=== PATIENT | female | born 1960 | race Two or more races ===

== ENCOUNTER 2024-05-27 14:49 | Emergency (ER) | payer MEDICAID, OTHER ==
[~2024-05-27] VITALS: Ht 149.9 cm; Wt 94.3 kg
[2024-05-27] MEDS: HYDROcodone-ACET 5/325MG TAB PO ONE (16:27)
[2024-05-27 16:44] VITALS: BP 197/97; PULSE 96; RESP 18; TEMP 98.2; O2SAT 95
--- NOTE | 2024-05-27 17:09 | DVH ---
CLINICAL INDICATION: fracture TECHNIQUE: XY L HAND 3V XRAY Comparison: None FINDINGS/IMPRESSION: : There is no evidence of acute fracture or dislocation. Soft-tissue swelling of the dorsum of the hand.
[2024-05-27] MEDS ORDERED: IBUP-1454 PO (17:36)
--- NOTE | 2024-05-27 17:36 | ED.PDOC ---
Musculoskeletal HPI Comments L hand contusion after hitting hand on TV. Concerned about swelling to dorsal aspect of the L hand. Pain 2/10. No other complaint. Full ROM. Chief Complaint: Upper Extremity Time Seen by MD: 16:00 Primary Care Provider: PAUL Reviewed Notes: Nurses Notes, Medications, Allergies Allergies: Coded Allergies: NO KNOWN ALLERGIES (Unverified , 05/27/24) Home Meds Active Scripts Ibuprofen (Ibuprofen) 600 Mg Tab, 1 TAB PO TID for 10 Days, #30 TAB 0 Refills Prov:MARGARITA POZO Liseth ENGINEER [employer] 05/27/24 Information Source: Patient Mode of Arrival: Ambulatory Family History Family History: Reviewed,noncontributory to illness Social History Smoker: Non-Smoker Alcohol: Denies ETOH Use Drugs: Denies Drug Use All Other Systems: Reviewed and Negative (per hpi) Physical Exam General Appearance: No Apparent Distress, Normal HEENT: Normal ENT Inspection, Pharynx Normal, TMs Normal Neck: Full Range of Motion, Non-Tender, Normal, Normal Inspection Respiratory: Chest Non-Tender, Lungs Clear, No Accessory Muscle Use, No Respiratory Distress, Normal Breath Sounds Cardiovascular: No Edema, No JVD, No Murmur, No Gallop, Normal Peripheral Pulses, Regular Rate/Rhythm Breast Exam: Deferred Gastrointestinal: No Organomegaly, Non Tender, No Pulsatile Mass, Normal Bowel Sounds, Soft Genitalia: Deferred Pelvic: Deferred Rectal: Deferred Extremities: No calf tenderness, Normal capillary refill, Normal inspection, Normal range of motion, Non-tender, No pedal edema Musculoskeletal : Apperance: Normal Neurologic: Alert, optometrist II-XII nml as Tested, No Motor Deficits, Normal Affect, Normal Mood, No Sensory Deficits Cerebellar Function: Normal Reflexes: Normal Skin: Dry, Normal Color, Warm Lymphatic: No Adenopathy Was a procedure done? Was a procedure done?: No Images 1 - hematoma. echymosis. Full ROM. Differential Diagnosis EXT Differential Diagnosis: Other X-Ray, Labs, Meds, VS Vital Signs Date Time Temp Pulse Resp B/P (MAP) Pulse Ox O2 Delivery O2 Flow Rate FiO2 05/27/24 16:44 98.2 96 18 197/97 (130) 95 98.2 05/27/24 16:44 96 18 95 Room Air 05/27/24 14:55 98.2 96 18 197/97 (130) 95 PATIENT: JERSON JOHNSON: [id number]: [id number] : 1960 LOC: ER ROOM / BED: / AGE / SEX: 63 / F ADM STATUS: REG ER SERVICE 1610 ORDERING PHYSICIAN: MARGARITA POZO NP PROCEDURE(s): LHAN - L HAND 3V XRAY REASON: fracture? ORDER NUMBER(s): [id number], ACCESSION NUMBER(s): [id number] CLINICAL INDICATION: fracture TECHNIQUE: XY L HAND 3V XRAY Comparison: None FINDINGS/IMPRESSION: : There is no evidence of acute fracture or dislocation. Soft-tissue swelling of the dorsum of the hand. ATED BY: GUERRERO ALFONSO MD DICTATED DATE/TIME: 05/27/241704 SIGNED BY: GUERRERO ALFONSO MD SIGNED DATE/TIME: 05/27/241704 CC: X-Ray, Labs, Meds, VS Comment Inform patient of their elevated blood pressure. Did not take medication this morning. Today discussed importance of regular exercise Sodium restriction DASH diet Limit or illuminate alcohol intake Patient verbalized understanding Follow-up with PCP External notes reviewed. Test results and diagnostic imaging interpreted. All diagnostic findings, discharge care, education and instructions provided Follow-up with PCP in 2 to 3 days Patient verbalized understanding and agreed to treatment plan Vital signs stable, afebrile, no acute distress noted Patient ambulatory with strong steady gait Advised to return precautions for any new or worsening symptoms, return to ER immediately for re-evaluation Patient is aware that the purpose of this visit was for an acute medical emergency requiring emergent stabilization. Chronic conditions, including malignancies have not been ruled out. Patient is instructed to follow up with PCP as directed and discharge instructions for continued care and workup. If unable to arrange follow-up, patient is to return to the emergency department for reassessment. Patient (parent or legal guardian if applicable) was given verbal and written discharge instructions and acknowledges understanding. Time of 1ST Reevaluation: 17:00 Reevaluation 1ST: Improved Patient Education/Counseling: Diagnosis, Treatment Family Education/Counseling: Diagnosis, Treatment Departure 1 Departure Time of Disposition: 17:34 Impression: Primary Impression: Hand contusion Qualified Codes: S60.222A - Contusion of left hand, initial encounter Additional Impression: Elevated blood pressure reading Disposition: HOME / SELF CARE / HOMELESS Condition: Stable e-Prescriptions Ibuprofen (Ibuprofen) 600 Mg Tab 1 TAB PO TID for 10 Days, #30 TAB 0 Refills Prov: MARGARITA POZO NP 05/27/24 Critical Care Note Critical Care Time?: No Stability Stability form required: No Heart Score Heart Score: Heart Score Response (Comments) Value History N/A 0 EKG N/A 0 Age N/A 0 Risk Factors N/A 0 Troponin N/A 0 Total 0 MARGARITA POZO NP May 27, 2024 17:36
== END 2024-05-27 17:37 | disposition home or self-care (01) ==
LOC: ER 14:49
DX: S60.222A Contusion of left hand, initial encounter (principal); R03.0 Elevated blood-pressure reading, without diagnosis of hypertension; Z79.1 Long term (current) use of non-steroidal anti-inflammatories (NSAID); W22.8XXA Striking against or struck by other objects, initial encounter; Y93.89 Activity, other specified; Y92.89 Other specified places as the place of occurrence of the external cause; Y99.8 Other external cause status
CPT/HCPCS: 73130

== ENCOUNTER 2024-12-28 20:27 | Emergency (ER) | payer OTHER, MEDICAID ==
[~2024-12-28 20:27] MED LIST: IBUP-1454 PO
--- NOTE | 2024-12-28 20:50 | ED.PDOC ---
Musculoskeletal HPI Comments 64y F who presents to the ED for chief complaint of RLE pain. Pt states she has been having RLE pain and swelling since earlier this AM. Pt states she woke up this AM with swelling and pain to the RLE, non- radiating, with no associated exacerbating or relieving factors. Pt states she was unable to ambulate all day and came to the ED for further evaluation. Pt in the ED, otherwise denies any other symptoms. Time Seen by MD: 20:49 Primary Care Provider: PAUL Chapin Notes: Medications, Allergies Allergies: Coded Allergies: NO KNOWN ALLERGIES (Unverified , 05/27/24) Home Meds Active Scripts Ibuprofen (Ibuprofen) 600 Mg Tab, 1 TAB PO TID for 10 Days, #30 TAB 0 Refills Prov:MARGARITA POZO ENVELOPE FOLDER 05/27/24 Information Source: Patient, Friend Mode of Arrival: Wheelchair Past Medical History PAST MEDICAL HISTORY: DM, HTN Family History Family History: Reviewed,noncontributory to illness Social History Smoker: Non-Smoker Alcohol: Denies ETOH Use Drugs: Denies Drug Use All Other Systems: Reviewed and Negative (see HPI) Physical Exam General Appearance: No Apparent Distress, Normal HEENT: Normal ENT Inspection, Pharynx Normal, TMs Normal Neck: Full Range of Motion, Non-Tender, Normal, Normal Inspection Respiratory: Chest Non-Tender, Lungs Clear, No Accessory Muscle Use, No Respiratory Distress, Normal Breath Sounds Cardiovascular: No Edema, No JVD, No Murmur, No Gallop, Normal Peripheral Pulses, Regular Rate/Rhythm Breast Exam: Deferred Gastrointestinal: No Organomegaly, Non Tender, No Pulsatile Mass, Normal Bowel Sounds, Soft Genitalia: Deferred Pelvic: Deferred Rectal: Deferred Extremities: Other (RLE pain and swelling to the R lateral mallelolus) Musculoskeletal : Apperance: Normal Neurologic: Alert, exhauster engineer II-XII nml as Tested, No Motor Deficits, Normal Affect, Normal Mood, No Sensory Deficits Cerebellar Function: Normal Reflexes: Normal Skin: Dry, Normal Color, Warm Lymphatic: No Adenopathy Was a procedure done? Was a procedure done?: Yes Sedation Sedation?: No Informed consent obtained: Yes Other Procedure Procedure splinting ( ankle stirrup) of right ankle with proper position, good NV functions Differential Diagnosis EXT Differential Diagnosis: Cellulitis, Deep Vein Thrombosis, Fracture, Sprain, Dislocation, Gout, DJD, Contusion, Strain, Neurovascular injury, Arthritis, Bursitis Time of 1ST Reevaluation: 21:35 Reevaluation 1ST: Improved Patient Education/Counseling: Diagnosis, Treatment, Prognosis, Need For Follow Up Family Education/Counseling: Diagnosis, Treatment, Prognosis, Need For Follow Up Comments pt denies injuries. no calf pain or swelling. on exam, the right lateral malleolus is mildly swollen and tender, but without redness or increased in warmth or signs of injuries. xrays is negative, but questions Lisfranc's injury. he has no pain over the the metatarsal area. her pain and swelling is the right lateral malleolus only. i will splint her affected ankle and she is stable to follow up with her doctor in 2-3 days Departure 1 Departure Time of Disposition: 21:40 Impression: Primary Impression: Ankle pain, right Qualified Codes: M25.571 - Pain in right ankle and joints of right foot Disposition: 01 HOME / SELF CARE / HOMELESS Condition: Good e-Prescriptions Hydrocodone-Acetaminophen (Hydrocodone Bitartrate/AC 5-325 mg) 1 Tab Tab 1 TAB PO Q12HP PRN for 3 Days, #6 TAB Prov: TERE BEDOYA MD 12/28/24 Discharged With: Self, Relative Critical Care Note Critical Care Time?: No Stability Stability form required: No Heart Score Heart Score: Heart Score Response (Comments) Value History N/A 0 EKG N/A 0 Age N/A 0 Risk Factors N/A 0 Troponin N/A 0 Total 0 I personally scribed for TERE BEDOYA MD ([email or web address]) on 12/28/24 at 20:50. Electronically submitted by Jossue Tinajero ([email or web address]). TERE BEDOYA MD Dec 28, 2024 20:50
--- NOTE | 2024-12-28 21:14 | DVH ---
CLINICAL INDICATION: pain TECHNIQUE: 3 radiographic views of the right foot were obtained. Comparison: None FINDINGS/IMPRESSION: There is no evidence of acute fracture or dislocation. Small posterior and plantar calcaneal bony spu rs. Os naviculare is noted. Slight widening of the interval between the 1st and 2nd metatarsal bases. Correlate for Possible Lis franc's injury of unknown chronicity. The alignment is anatomical. There is no radiopaque foreign body. Mild dorsal foot soft tissue edema.
--- NOTE | 2024-12-28 21:14 | DVH ---
CLINICAL INDICATION: pain TECHNIQUE: 3 radiographic views of the right ankle were obtained. Comparison: None FINDINGS/IMPRESSION: There is no evidence of acute fracture or dislocation. The visualized joint space is well maintained. Posterior and plantar calcaneal bony spurs. Bony spur from the anterior distal tibia. The alignment is anatomical. There is no radiopaque foreign body. [id number] ankle soft tissue edema soft tissue edema over the dorsal visualized foot.
[2024-12-28] MEDS ORDERED: HYDR-4902 PO (21:41)
[2024-12-28] MEDS: HYDROcodone-ACET 5/325MG TAB PO ONE (22:05)
[2024-12-28 22:18] VITALS: BP 143/75; PULSE 88; RESP 20; TEMP 98.2; O2SAT 96
== END 2024-12-28 22:36 | disposition home or self-care (01) ==
LOC: ER 20:27
DX: M25.571 Pain in right ankle and joints of right foot (principal); E11.9 Type 2 diabetes mellitus without complications; I10 Essential (primary) hypertension; Z79.1 Long term (current) use of non-steroidal anti-inflammatories (NSAID)
CPT/HCPCS: 29515; 73610; 73630; 99284; J7030

== ENCOUNTER 2025-03-30 10:14 | Emergency (ER) | payer OTHER, MEDICAID ==
[~2025-03-30] VITALS: Ht 147.3 cm; Wt 99.8 kg
[~2025-03-30 10:14] MED LIST changes: +HYDR-4902 PO
[2025-03-30 10:17] VITALS: TEMP 98.3
--- NOTE | 2025-03-30 10:23 | ECG ---
[facility] Test Date: 2025-03-30 Test Time: 10:17:38 Pat Name: JERSON JOHNSON Department: Room: Gender: F Landscape Architect: GP : 1960 Requested By: ORTEGA KILPATRICK Order Number: [id number] Reading MD: Kashmir Meneses Measurements Intervals [place] Rate: 80 P: 48 GA: 313 QRS: 18 QRSD: 93 T: 19 QT: 376 QTc: 434 Interpretive Statements Sinus rhythm Prolonged GA interval Probable left atrial enlargement Probable anterior infarct, old Electronically Signed On 03-30-2025 15:19:19 PDT by Kashmir Meneses Please click the below link to view image of tracing.
--- NOTE | 2025-03-30 11:14 | ED.PDOC ---
GI ASSESSMENT HPI Comments 64 year old female presents to the ED with a chief complaint of epigastric pain onset today about 30 minutes prior to ED arrival. Patient began experiencing sharp epigastric pain, as well as sweats. Patient states she has also been experiencing constipation, last bowel movement was yesterday, states it was not a normal bowel movement. Denies nausea, vomiting, diarrhea, headache, dizziness, shortness of breath, fever, chills, dysuria, hematuria, hematemesis. No other symptoms or modifying factors present at this time. Chief Complaint: Abdominal Pain Time Seen by MD: 11:00 Primary Care Provider: PAUL Reviewed Notes: Medications, Allergies Allergies: Coded Allergies: NO KNOWN ALLERGIES (Unverified , 05/27/24) Home Meds Active Scripts Hydrocodone-Acetaminophen (Hydrocodone Bitartrate/AC 5-325 mg) 1 Tab Tab, 1 TAB PO Q12HP PRN for 3 Days, #6 TAB Prov:TERE BEDOYA MD 12/28/24 Ibuprofen (Ibuprofen) 600 Mg Tab, 1 TAB PO TID for 10 Days, #30 TAB 0 Refills Prov:MARGARITA POZO NP 05/27/24 Information Source: Patient Mode of Arrival: Ambulatory Timing: Minutes Duration: Since onset Prehospital treatment: None Quality: Sharp Vomitus: None Severity: Moderate Recent: None Recent Hx of: None Pain Location: Epigastric Modifying Factors: Nothing Associated sign and symptoms: Abdominal Pain Past Medical History PAST MEDICAL HISTORY: DM, HTN Surgical History: Denies all surgeries FARE ENFORCEMENT OFFICER History: No Pertinent FARE ENFORCEMENT OFFICER History Family History Family History: Reviewed,noncontributory to illness Social History Smoker: Non-Smoker Alcohol: Denies ETOH Use Drugs: Denies Drug Use Lives In: Home Constitutional: reports: sweats; denies: chills, diaphoresis, fatigue, fever, malaise, weakness, others EENTM: denies: blurred vision, double vision, ear bleeding, ear discharge, ear drainage, ear pain, ear ringing, eye pain, eye redness, hearing loss, mouth pain, mouth swelling, nasal discharge, nose bleeding, nose congestion, nose pain, photophobia, tearing, throat pain, throat swelling, voice changes, others Respiratory: denies: cough, hemoptysis, orthopnea, SOB at rest, shortness of breath, SOB with excertion, stridor, wheezing, others Cardiovascular: denies: chest pain, dizzy spells, diaphoresis, Dyspnea on exertion, edema, irregular heart beat, left arm pain, lightheadedness, palpitations, PND, syncope, others Gastrointestinal: reports: abdominal pain; denies: abdomen distended, blood streaked bowels, constipated, diarrhea, dysphagia, difficulty swallowing, hematemesis, melena, nausea, poor appetite, poor fluid intake, rectal bleeding, rectal pain, vomiting, others Genitourinary: denies: abnormal vagina bleeding, burning, dyspareunia, dysuria, flank pain, frequency, hematuria, incontinence, pain, , vagina discharge, urgency, others Neurological: denies: dizziness, fainting, headache, left sided numbness, left sided weakness, numbness, paresthesia, pre-existing deficit, right sided numbness, right sided weakness, seizure, speech problems, tingling, tremors, weakness, others Musculoskeletal: denies: back pain, gout, joint pain, joint swelling, muscle pain, muscle stiffness, neck pain, others Integumetry: denies: bruises, change in color, change in hair/nails, dryness, laceration, lesions, lumps, rash, wounds, others Allergic/Immunocompromised: denies: Difficulty Healing, Frequent Infections, Hives, Itching, others Hematologic/Lymphatic: denies: anemia, blood clots, easy bleeding, easy bruising, swollen glands, others Endocrine: denies: excessive hunger, excessive sweating, excessive thirst, excessive urination, flushing, intolerance to cold, intolerance to heat, une xplained weight gain, unexplained weight loss, others Psychiatric: denies: anxiety, bipolar disorder, depression, hopeless, panic disorder, schizophrenia, sleepless, suicidal, others All Other Systems: Reviewed and Negative Physical Exam General Appearance: Moderate Distress, Normal HEENT: Normal ENT Inspection, Pharynx Normal, TMs Normal Neck: Full Range of Motion, Non-Tender, Normal, Normal Inspection Respiratory: Chest Non-Tender, Lungs Clear, No Accessory Muscle Use, No Respiratory Distress, Normal Breath Sounds Cardiovascular: No Edema, No JVD, No Murmur, No Gallop, Normal Peripheral Pulses, Regular Rate/Rhythm Breast Exam: Deferred Gastrointestinal: Epigastric, No Organomegaly, No Pulsatile Mass, Normal Bowel Sounds, Soft Genitalia: Deferred Pelvic: Deferred Rectal: Deferred Extremities: No calf tenderness, Normal capillary refill, Normal inspection, Normal range of motion, Non-tender, No pedal edema Musculoskeletal : Apperance: Normal Neurologic: Alert, program arranger II-XII nml as Tested, No Motor Deficits, Normal Affect, Normal Mood, No Sensory Deficits Cerebellar Function: Normal Reflexes: Normal Skin: Dry, Normal Color, Warm Peripheral Pulses: 3+ Radial (R), 3+ Radial (L) Lymphatic: No Adenopathy EKG EKG : Pulse Rate (adult): 80 Cardiac Rhythm: NSR Was a procedure done? Was a procedure done?: No GI differential Dx Differential Diagnosis: Constipation, Diverticular disease, Esophagitis, Gastritis/PUD, Gastroenteritis X-Ray, Labs, Meds, VS Vital Signs Date Time Temp Pulse Resp B/P (MAP) Pulse Ox O2 Delivery O2 Flow Rate FiO2 03/30/25 11:14 80 03/30/25 10:17 98.3 79 22 161/83 94 98.3 03/30/25 10:17 80 Lab Test 03/30/25 12:17 03/30/25 11:10 Range/Units Urine Color Light-yellow Yellow Urine Clarity Clear Clear Urine pH 5.0 5.0-9.0 Urine Specific [place] 1.010 1.001-1.035 Urine Protein Negative Negative Urine Ketones Negative Negative Urine Blood Negative Negative /uL Urine Nitrite Negative Negative Urine Bilirubin Negative Negative Urine Urobilinogen Normal Negative mg/dL Urine Leukocyte Esterase Negative Negative /uL Urine RBC 1 0 - 4 /hpf Urine Microscopic WBC 1 0-5 /HPF Urine Squamous Epithelial Cells Few <5 /hpf Urine Bacteria Few H None Seen /hpf Urine Glucose Normal Normal mg/dL White Blood Count 6.2 4.4-10.8 10^3/uL Red Blood Count 5.34 H 4.0-5.20 10^6/uL Hemoglobin 15.2 12.2-16.2 g/dL Hematocrit 44.8 36.0-46.0 % Mean Corpuscular Volume 83.9 80.0-100.0 fL Mean Corpuscular Hemoglobin 28.4 28.0-32.0 pg Mean Corpuscular Hemoglobin Concent 33.8 32.0-36.0 g/dL Red Cell Distribution Width 14.8 H 11.8-14.3 % Platelet Count 666 H 140-450 10^3/uL Mean Platelet Volume 7.5 6.9-10.8 fL Neutrophils (%) (Auto) 68.1 37.0-80.0 % Lymphocytes (%) (Auto) 21.8 10.0-50.0 % Monocytes (%) (Auto) 6.6 0.0-12.0 % Eosinophils (%) (Auto) 2.2 0.0-7.0 % Basophils (%) (Auto) 1.3 0.0-2.0 % Neutrophils # (Auto) 4.2 1.6-8.6 10 ^3/uL Lymphocytes # (Auto) 1.4 0.4-5.4 10 ^3/uL Monocytes # (Auto) 0.4 0-1.3 10 ^3/uL Eosinophils # (Auto) 0.1 0-0.8 10 ^3/uL Basophils # (Auto) 0.1 0-0.2 10 ^3/uL Nucleated Red Blood Cells 0.1 % Sodium Level 141 136-145 mmol/L Potassium Level 4.2 3.5-5.1 mmol/L Chloride Level 104 98-107 mmol/L Carbon Dioxide Level 27 20-31 mmol/L Anion Gap 10 5-15 Blood Urea Nitrogen 15 9-23 mg/dL Creatinine 1.26 H 0.550-1.02 mg/dL Glomerular Filtration Rate Calc 47 >90 mL/min BUN/Creatinine Ratio 11.9 10.0-20.0 Serum Glucose 101 74-106 mg/dL Calcium Level 9.4 8.7-10.4 mg/dL Total Bilirubin 0.4 0.2-1.0 mg/dL Aspartate Amino Transferase (AST) 48 H 13-40 U/L Alanine Aminotransferase (ALT) 32 7-40 U/L Alkaline Phosphatase 107 46-116 U/L Troponin I High Sensitivity 3 L </=34 ng/L Total Protein 7.5 5.7-8.2 g/dL Albumin 4.8 3.2-4.8 g/dL [address] [address] Ph: [phone] DIAGNOSTIC IMAGING Diagnostic Imaging Report : [id number] Signed PATIENT: JERSON JOHNSON SACCT: [id number] UNIT: [id number] : 1960 LOC: ER ROOM / BED: / AGE / SEX: 64 / F ADM STATUS: REG ER SERVICE 1100 ORDERING PHYSICIAN: ORTEGA KILPATRICK MD PROCEDURE(s): ABPL - CT AB PEL WO CON-NO ORAL OR IV REASON: stone ORDER NUMBER(s): [id number], ACCESSION NUMBER(s): [id number] EXAM: CT CT AB PEL WO CON-NO ORAL OR IV HISTORY: stone COMPARISON: None TECHNIQUE: Helical CT images of the abdomen and pelvis were performed without IV contrast. Sagittal and coronal reformatted images were obtained. This CT exam was performed using one or more of the following dose reduction techniques: Automated exposure control, adjustment of the mA and/or kv according to patient size, or the use of iterative reconstruction techniques. Radiation Dose: Abdomen/Pelvis: CTDIvol 23.68 mGy, DLP 1271.46 mGy*cm. FINDINGS: CT abdomen: There is a calcified granuloma in the right lower lobe. The heart is enlarged. The bilateral pericardial fat pads are prominent. There are calcified granulomas in the liver and spleen. The noncontrast gallbladder, pancreas, kidneys, and adrenal glands are unremarkable. No abdominal aortic aneurysm. There is a left upper quadrant splenule. CT pelvis: No abnormal bowel dilatation, free air, or free fluid. There is fecal retention in the colon. There are a few descending and sigmoid colon diverticula without evidence of acute diverticulitis. The appendix and urinary bladder are unremarkable. Probable section scar. There are chronic appearing superior endplate compression fractures of T8 and T11. There is moderate to severe lumbar degenerative disc disease, greatest at L5-S1. There is significant neural foraminal stenosis on the right at L4-L5 and on the left at L5-S1. IMPRESSION: 1. Cardiomegaly. 2. Old granulomatous disease of the chest, liver, and spleen. 3. Fecal retention in the colon suggestive of constipation. 4. Mild colonic diverticulosis without evidence of acute diverticulitis. 5. Moderate to severe lumbar degenerative disc disease. Consider follow-up noncontrast MRI of the lumbar spine on an outpatient basis for better characterization, especially if the patient complains of lower extremity radicular symptoms. 6. Chronic appearing superior endplate compression fractures of T8 and T11. 7. No evidence of bowel obstruction, urinary tract obstruction, acute append icitis, or other acute process in the abdomen or pelvis. ATED BY: ALINA RAGSDALE MD DICTATED DATE/TIME: 03/30/251323 SIGNED BY: ALINA RAGSDALE MD SIGNED DATE/TIME: 03/30/251323 CC: Patient alert. Complaining of abdominal pain. Vitals stable. Answering questions. Abdomen is soft tender in the epigastric region. CT scan of the abdomen does not show any acute process other than diverticulosis. Chronic condition. Explained to the patient. Continue monitoring. Time of 1ST Reevaluation: 11:30 Reevaluation 1ST: Unchanged Patient Education/Counseling: Diagnosis, Treatment, Prognosis Family Education/Counseling: No Family Present SEPSIS Sepsis Screen Date sepsis recognized/suspect: Mar 30, 2025 Time Sepsis recognized/suspect: 915 Recent Procedure: No On Antibiotic Therapy: No Respiratory Rate >20: No Heart Rate >90: No Temp<36 C (96.8 F) or >38.3 C: No SBP <90 or MAP <65 mmHG: No New Acute Mental Status Change: No Is the patient on CPAP, BIPAP,: No Physician Orders Ct Ab Pel Wo Con-No Oral Or Iv (03/30/25 11:00) Vital Signs Date Time Temp Pulse Resp B/P (MAP) Pulse Ox O2 Delivery O2 Flow Rate FiO2 03/30/25 11:14 80 03/30/25 10:17 98.3 79 22 161/83 94 98.3 03/30/25 10:17 80 Laboratory Tests Test 03/30/25 11:10 White Blood Count 6.2 10^3/uL (4.4-10.8) Departure 1 Departure Time of Disposition: 14:12 Impression: Primary Impression: Acute abdominal pain Additional Impressions: Constipation Qualified Codes: K59.01 - Slow transit constipation Degenerative disc disease Qualified Codes: M51.369 - Other intervertebral disc degeneration, lumbar region without mention of lumbar back pain or lower extremity pain Disposition: ADMITTED INPATIENT Admit to: Med Surg Condition: Guarded Critical Care Note Critical Care Time?: Yes (90 min-critical care time only) Stability Stability form required: No Heart Score Heart Score: Heart Score Response (Comments) Value History N/A 0 EKG N/A 0 Age N/A 0 Risk Factors N/A 0 Troponin N/A 0 Total 0 I personally scribed for ORTEGA KILPATRICK MD ([email or web address]) on 03/30/25 at 11:14. Electronically submitted by Ethel Woodson ([email or web address]). I personally scribed for ORTEGA KILPATRICK MD ([email or web address]) on 03/30/25 at 13:59. Electronically submitted by Ethel Woodson ([email or web address]). ORTEGA KILPATRICK MD Mar 30, 2025 11:14
[2025-03-30 11:29] LABS: Hematocrit 44.8 % (36.0-46.0); Hemoglobin 15.2 g/dL (12.2-16.2); Mean Corpuscular Hemoglobin 28.4 pg (28.0-32.0); Mean Corpuscular Volume 83.9 fL (80.0-100.0); Nucleated Red Blood Cells % 0.1 %
[2025-03-30 11:41] LABS: Alanine Aminotransferase 32 U/L (7-40); Alkaline Phosphatase 107 U/L (46-116); Anion Gap 10 (5-15); BUN/Creatinine Ratio 11.9 (10.0-20.0); Blood Urea Nitrogen 15 mg/dL (9-23); Calcium 9.4 mg/dL (8.7-10.4); Carbon Dioxide 27 mmol/L (20-31); Chloride 104 mmol/L (98-107); Glucose 101 mg/dL (74-106); Potassium 4.2 mmol/L (3.5-5.1); Sodium 141 mmol/L (136-145); Total Protein 7.5 g/dL (5.7-8.2)
[2025-03-30 11:42] LABS: Bilirubin, Total 0.4 mg/dL (0.2-1.0)
[2025-03-30 11:53] LABS: Albumin 4.8 g/dL (3.2-4.8)
[2025-03-30 12:31] LABS: Urine Protein, UAD Negative (Negative)
--- NOTE | 2025-03-30 13:27 | DVH ---
EXAM: CT CT AB PEL WO CON-NO ORAL OR IV HISTORY: stone COMPARISON: None TECHNIQUE: Helical CT images of the abdomen and pelvis were performed without IV contrast. Sagittal a nd coronal reformatted images were obtained. This CT exam was performed using one or more of the foll owing dose reduction techniques: Automated exposure control, adjustment of the mA and/or kv according to patient size, or the use of iterative reconstruction techniques. Radiation Dose: Abdomen/Pelvis: CTDIvol 23.68 mGy, DLP 1271.46 mGy*cm. FINDINGS: CT abdomen: There is a calcified granuloma in the right lower lobe. The heart is enlarged. The bilat eral pericardial fat pads are prominent. There are calcified granulomas in the liver and spleen. The noncontrast gallbladder, pancreas, kidneys, and adrenal glands are unremarkable. No abdominal aortic aneurysm. There is a left upper quadrant splenule. CT pelvis: No abnormal bowel dilatation, free air, or free fluid. There is fecal retention in the col on. There are a few descending and sigmoid colon diverticula without evidence of acute diverticulitis . The appendix and urinary bladder are unremarkable. Probable section scar. There are chroni c appearing superior endplate compression fractures of T8 and T11. There is moderate to severe lumbar degenerative disc disease, greatest at L5-S1. There is significant neural foraminal stenosis on the right at L4-L5 and on the left at L5-S1. IMPRESSION: 1. Cardiomegaly. 2. Old granulomatous disease of the chest, liver, and spleen. 3. Fecal retention in the colon suggestive of constipation. 4. Mild colonic diverticulosis without evidence of acute diverticulitis. 5. Moderate to severe lumbar degenerative disc disease. Consider follow-up noncontrast MRI of the maría mbar spine on an outpatient basis for better characterization, especially if the patient complains of lower extremity radicular symptoms. 6. Chronic appearing superior endplate compression fractures of T8 and T11. 7. No evidence of bowel obstruction, urinary tract obstruction, acute appendicitis, or other acute pr ocess in the abdomen or pelvis.
--- NOTE | 2025-03-30 16:41 | DVHINCON2 ---
Date Seen: Mar 30, 2025 Referring Physician ER physician Dr. Moore. Reason for Consultation Abdominal pain with constipation. History of Present Illness 64-year-old female with a known history of diabetes mellitus type 2, hypertension initially present with the hospital with a epigastric pain and abdominal pain. Patient also complaining of constipation. CT abdomen and pelvis was done which shows no evidence of any diverticulitis but fecal burden in the colon. Patient is currently denies any chest pain shortness of breath fevers chills nausea vomiting diarrhea hematemesis hematochezia melena dysuria hematuria. Patient can be discharged with close follow up as an outpatient with the PCP . Past Medical History Diabetes mellitus type 2 Hypertension Past Surgical History None significant. Allergies: Coded Allergies: NO KNOWN ALLERGIES (Unverified , 05/27/24) Home Meds Active Scripts Hydrocodone-Acetaminophen (Hydrocodone Bitartrate/AC 5-325 mg) 1 Tab Tab, 1 TAB PO Q12HP PRN for 3 Days, #6 TAB Prov:TERE BEDOYA MD 12/28/24 Ibuprofen (Ibuprofen) 600 Mg Tab, 1 TAB PO TID for 10 Days, #30 TAB 0 Refills Prov:MARGARITA POZO NP 05/27/24 Vital Signs Vital Signs Date Time Temp Pulse Resp B/P (MAP) Pulse Ox O2 Delivery O2 Flow Rate FiO2 03/30/25 11:14 80 03/30/25 10:17 98.3 22 161/83 94 98.3 Labs/Diagnostic Data Labs Test 03/30/25 12:17 03/30/25 11:10 Range/Units Urine Color Light-yellow Yellow Urine Clarity Clear Clear Urine pH 5.0 5.0-9.0 Urine Specific [place] 1.010 1.001-1.035 Urine Protein Negative Negative Urine Ketones Negative Negative Urine Blood Negative Negative /uL Urine Nitrite Negative Negative Urine Bilirubin Negative Negative Urine Urobilinogen Normal Negative mg/dL Urine Leukocyte Esterase Negative Negative /uL Urine RBC 1 0 - 4 /hpf Urine Microscopic WBC 1 0-5 /HPF Urine Squamous Epithelial Cells Few <5 /hpf Urine Bacteria Few H None Seen /hpf Urine Glucose Normal Normal mg/dL White Blood Count 6.2 4.4-10.8 10^3/uL Red Blood Count 5.34 H 4.0-5.20 10^6/uL Hemoglobin 15.2 12.2-16.2 g/dL Hematocrit 44.8 36.0-46.0 % Mean Corpuscular Volume 83.9 80.0-100.0 fL Mean Corpuscular Hemoglobin 28.4 28.0-32.0 pg Mean Corpuscular Hemoglobin Concent 33.8 32.0-36.0 g/dL Red Cell Distribution Width 14.8 H 11.8-14.3 % Platelet Count 666 H 140-450 10^3/uL Mean Platelet Volume 7.5 6.9-10.8 fL Neutrophils (%) (Auto) 68.1 37.0-80.0 % Lymphocytes (%) (Auto) 21.8 10.0-50.0 % Monocytes (%) (Auto) 6.6 0.0-12.0 % Eosinophils (%) (Auto) 2.2 0.0-7.0 % Basophils (%) (Auto) 1.3 0.0-2.0 % Neutrophils # (Auto) 4.2 1.6-8.6 10 ^3/uL Lymphocytes # (Auto) 1.4 0.4-5.4 10 ^3/uL Monocytes # (Auto) 0.4 0-1.3 10 ^3/uL Eosinophils # (Auto) 0.1 0-0.8 10 ^3/uL Basophils # (Auto) 0.1 0-0.2 10 ^3/uL Nucleated Red Blood Cells 0.1 % Sodium Level 141 136-145 mmol/L Potassium Level 4.2 3.5-5.1 mmol/L Chloride Level 104 98-107 mmol/L Carbon Dioxide Level 27 20-31 mmol/L Anion Gap 10 5-15 Blood Urea Nitrogen 15 9-23 mg/dL Creatinine 1.26 H 0.550-1.02 mg/dL Glomerular Filtration Rate Calc 47 >90 mL/min BUN/Creatinine Ratio 11.9 10.0-20.0 Serum Glucose 101 74-106 mg/dL Calcium Level 9.4 8.7-10.4 mg/dL Total Bilirubin 0.4 0.2-1.0 mg/dL Aspartate Amino Transferase (AST) 48 H 13-40 U/L Alanine Aminotransferase (ALT) 32 7-40 U/L Alkaline Phosphatase 107 46-116 U/L Troponin I High Sensitivity 3 L </=34 ng/L Total Protein 7.5 5.7-8.2 g/dL Albumin 4.8 3.2-4.8 g/dL Assessment 64-year-old female with a known history of diabetes mellitus type 2, hypertension, in his has been with the hospital with the abdominal pain found to have 1. Abdominal pain without any acute evidence of pathology 2. Constipation 4. Hypotension -patient can be discharged without follow up with the PCP. Bowel regimen. Plan of care discussed with the ER physician. -final disposition by the ER physician. Plan discussed with: Other (ER physician Dr. Moore) Date of Service: Mar 30, 2025 Billing Provider: JORGE AL MD Common Visit Codes: NOT BILLABLE JORGE AL MD Mar 30, 2025 16:41
[2025-03-30 18:23] VITALS: BP 169/84; PULSE 81; RESP 18; O2SAT 94
== END 2025-03-30 18:25 | disposition home or self-care (01) ==
LOC: ER 10:14
DX: K59.00 Constipation, unspecified (principal); R10.13 Epigastric pain; M51.369 Other intervertebral disc degeneration, lumbar region without mention of lumbar back pain or lower extremity pain; I10 Essential (primary) hypertension; E11.9 Type 2 diabetes mellitus without complications
CPT/HCPCS: 36415; 74176; 80053; 81001; 84484; 85025; 93005